=== PATIENT | female | born 1955 | race Caucasian/White ===

== ENCOUNTER 2020-03-02 10:48 | Emergency (ER) | payer MEDICAID, OTHER ==
[~2020-03-02] VITALS: Ht 167.6 cm; Wt 90.2 kg
[2020-03-02] MEDS ORDERED: LISI-464 PO (11:02)
--- NOTE | 2020-03-02 11:21 | NUR ---
Pt states epigastric abd pain x3 days, states worse today. Pt states n/v x3 days as well, denies any vomiting today. IV started, EKG completed. Pt placed on monitors. ERMD at bedside for assessment. Will follow orders.
[2020-03-02] MEDS ORDERED: MAALOX/HYOSCYAMINE/LIDOCAINE 45 ML BTL PO ONE (11:30)
[2020-03-02] MEDS ORDERED: ONDANSETRON 2MG/ML, 2ML IVPush ONE (11:30)
[2020-03-02] MEDS ORDERED: MORPHINE SULFATE 4 MG/ML, 1ML IVPush ONE (11:30)
[2020-03-02] MEDS ORDERED: SODIUM CHLORIDE 0.9% 1,000ML IVBOLUS ONE (11:30)
[2020-03-02] MEDS ORDERED: MAALOX/HYOSCYAMINE/LIDOCAINE 45 ML BTL ONE (11:31)
[2020-03-02] MEDS ORDERED: ONDANSETRON 2MG/ML, 2ML ONE (11:31)
[2020-03-02 11:40] LABS: BASOPHILS # (AUTO) 0.03 x10^3/uL (0-0.1); BASOPHILS % (AUTO) 0 % (0-1); EOSINOPHILS % (AUTO) 2 % (1-7); LYMPHOCYTES # (AUTO) 2.36 x10^3/uL (1-3.4); LYMPHOCYTES % (AUTO) 18 % (22-44); MD NO; MEAN CORPUSCULAR HEMOGLOBIN 28.6 pg (27.0-34.8); MEAN CORPUSCULAR HGB CONC 33.5 g/dL (32.4-35.8); MEAN CORPUSCULAR VOLUME 85.4 fL (80-100); MEAN PLATELET VOLUME 11.4 fL (7.4-10.4); MONOCYTES # (AUTO) 0.48 x10^3/uL (0.2-0.8); MONOCYTES % (AUTO) 4 % (2-9); NEUTROPHILS # (AUTO) 9.76 x10^3/uL (1.8-6.8); NEUTROPHILS % (AUTO) 76 % (42-75); PLATELET COUNT 219 x10^3/uL (130-400); RED BLOOD COUNT 5.54 x10^6/uL (3.82-5.3); RED CELL DISTRIBUTION WIDTH 13.1 % (9.6-15.2)
--- NOTE | 2020-03-02 11:42 | NUR ---
Pt states some pain relief after GI cocktail. Pt refuses morphine, ERMD aware.
[2020-03-02 11:43] LABS: ALANINE AMINOTRANSFERASE 28 U/L (12-78); ALBUMIN 3.9 g/dL (3.4-5.0); ANION GAP 9 mmol/L (5-15); CALCIUM 9.8 mg/dL (8.5-10.1); CHLORIDE 102 mmol/L (98-107); CREATININE 0.74 mg/dL (0.55-1.02)
[2020-03-02 11:47] LABS: ALKALINE PHOSPHATASE 104 U/L (45-117); BILIRUBIN,TOTAL 0.7 mg/dL (0.2-1.0); TOTAL PROTEIN 8.4 g/dL (6.4-8.2); TROPONIN I < 0.015 ng/mL (0.000-0.045)
--- NOTE | 2020-03-02 12:08 | NUR ---
lunch RN: Pt resting in bed
--- NOTE | 2020-03-02 12:49 | NUR ---
Pt resting in bed, awaiting CT. Pt remains on monitors, vss. Pt denies need for morphine still, states pain level comfortable for her currently, will reassess again. Cont to monitor.
--- NOTE | 2020-03-02 13:01 | NUR ---
REPORT FROM SUMA RINCON. PT TO CT AT THIS TIME.
[2020-03-02] MEDS ORDERED: OMNIPAQUE 350 MG/ML, 100ML BOTTLE ONE (13:21)
--- NOTE | 2020-03-02 13:24 | NUR ---
PT BACK FROM CT. TASK RN TO INPUT VITALS AND MONITOR PT. PT IS P/W/D, NAD, RESP WNL, ABC INTACT, RESTING IN GURNEY, CALL LIGHT IN LAP, DENIES ADDITIONAL NEEDS AT THIS TIME. WAITING FOR CT READ.
[2020-03-02 14:18] VITALS: BP 118/54
--- NOTE | 2020-03-02 14:19 | NUR ---
PT RESTING IN ROOM. VSS. NO NEEDS EXPRESSED. CALL LIGHT WITHIN REACH. CHART UP FOR RECHECK.
--- NOTE | 2020-03-02 14:25 | NUR ---
NEW ORDER FOR UA RECEIVED AT THIS TIME.
--- NOTE | 2020-03-02 14:31 | NUR ---
PT UP SELF WITH STEADY GAIT TO RR TO PROVIDE UA SAMPLE. UA COLLECTED AND SENT. PT RECONNECTED TO ALL MONITORS.
[2020-03-02 14:49] LABS: MICROSCOPIC NOT IND
[2020-03-02 14:54] LABS: CULTURE INDICATED? NO
--- NOTE | 2020-03-02 15:31 | NUR ---
DR. GREY TO BS TO UPDATE ON RESULTS AND POC. PLAN TO DC.
== END 2020-03-02 16:08 | disposition home or self-care (01) ==
LOC: ED 12:40
DX: R91.1 Solitary pulmonary nodule (principal); E87.6 Hypokalemia; R94.31 Abnormal electrocardiogram [ECG] [EKG]; R10.13 Epigastric pain
CPT/HCPCS: 36415; 74177; 80053; 81003; 83690; 84484; 85025; 93005; 96361; 96374; 99285; J2405; J7030; Q9967

== ENCOUNTER → 2020-09-17 | Outpatient (CLI) | payer MEDICAID ==
[~2020-09-17] MED LIST: ASPI-515 PO; LISI-464 PO; MULT-252 PO; calcium PO; vitamin C PO
[2020-09-17 09:32] LABS: BASOPHILS % (AUTO) 1 % (0-1); EOSINOPHILS % (AUTO) 2 % (1-7); LYMPHOCYTES % (AUTO) 26 % (22-44); MEAN CORPUSCULAR HEMOGLOBIN 27.8 pg (27.0-34.8); MEAN CORPUSCULAR HGB CONC 32.2 g/dL (32.4-35.8); MEAN PLATELET VOLUME 10.3 fL (7.4-10.4); MONOCYTES % (AUTO) 5 % (2-9); NEUTROPHILS % (AUTO) 67 % (42-75); PLATELET COUNT 256 x10^3/uL (130-400); RED BLOOD COUNT 4.91 x10^6/uL (3.82-5.3); RED CELL DISTRIBUTION WIDTH 14.6 % (9.6-15.2)
[2020-09-17 09:34] LABS: MD NO
[2020-09-17 09:42] LABS: INTERNATIONAL NORMALIZED RATIO 0.98 (0.93-1.1); PROTHROMBIN TIME 10.4 Seconds (9.6-11.5)
[2020-09-17 09:43] LABS: ALBUMIN 3.7 g/dL (3.4-5.0); ANION GAP 4 mmol/L (5-15); CALCIUM 9.8 mg/dL (8.5-10.1); CHLORIDE 107 mmol/L (98-107)
[2020-09-17 09:57] LABS: ALANINE AMINOTRANSFERASE 29 U/L (12-78); ALKALINE PHOSPHATASE 102 U/L (45-117); BILIRUBIN,TOTAL 0.3 mg/dL (0.2-1.0); TOTAL PROTEIN 7.8 g/dL (6.4-8.2)
== END | disposition home or self-care (01) ==
LOC: STAR 07:56
PROVIDERS: ATTEND Orthopaedic Surgery
DX: Z01.812 Encounter for preprocedural laboratory examination (principal); Z20.828 Contact with and (suspected) exposure to other viral communicable diseases; M17.12 Unilateral primary osteoarthritis, left knee
CPT/HCPCS: 36415; 80053; 83036; 85025; 85610; 85730; 87081; 87635; 93005

== ENCOUNTER 2020-09-22 10:11 | Observation (INO) | payer MEDICAID ==
[~2020-09-22] VITALS: Ht 165.1 cm; Wt 100.0 kg
[2020-09-22] MEDS: DOCUSATE 100 MG CAPSULE PO SCH ×2 (09:00→21:00)
[~2020-09-22 10:11] MED LIST changes: +ACETAMINOPHEN 650 MG/20.3 ML UDC PO PRN; +BISACODYL 10 MG SUPP PR PRN; +DIPHENHYDRAMINE 25 MG CAPSULE PO PRN; +EPINEPHRINE 1 MG/ML, 1ML ONE; +HYDROcodone/APAP 5/325 TABLET PO PRN; +HYDROmorphone 1 MG/ML, 1ML INJ IV PRN; +KETOROLAC 60 MG/2 ML ONE; +MAGNESIUM HYDROXIDE 8%, 30ML UDC PO PRN; +ONDANSETRON 2MG/ML, 2ML IV PRN; +ONDANSETRON 4 MG TABLET PO PRN; +ROPIvacaine/PF 0.5%, 20 ML ONE; +ROPIvacaine/PF 0.5%, 30 ML ONE; +SENNA/DOCUSATE TABLET PO PRN; +TRANEXAMIC ACID 100 MG/ML, 10ML ONE; +VANCOMYCIN 1,000 MG ONE; +ZOLPIDEM 5MG TABLET PO PRN
[2020-09-22] MEDS ORDERED: ACETAMINOPHEN 500 MG TABLET PO ONE (10:30)
[2020-09-22] MEDS ORDERED: LACTATED RINGERS 1,000 ML IV SCH (10:30)
[2020-09-22] MEDS ORDERED: GABAPENTIN 300 MG CAPSULE PO ONE (10:30)
[2020-09-22] MEDS ORDERED: CHLORHEXIDINE 15 ML UDC MM ONE (10:30)
[2020-09-22] MEDS ORDERED: ACETAMINOPHEN 500 MG TABLET ONE (10:40)
[2020-09-22] MEDS ORDERED: GABAPENTIN 300 MG CAPSULE ONE (10:41)
[2020-09-22] MEDS ORDERED: CHLORHEXIDINE 15 ML UDC ONE (10:41)
[2020-09-22] MEDS ORDERED: METH10TA6 PO ×2 (10:56)
[2020-09-22] MEDS ORDERED: MIDAZOLAM 1 MG/ML, 2ML ONE (11:06)
[2020-09-22] MEDS ORDERED: FENTANYL PF 100 MCG/2ML ONE ×3 (11:06→13:40)
[2020-09-22] MEDS ORDERED: GLYCOPYRROLATE 0.2MG/1ML, 5ML ONE (11:11)
[2020-09-22] MEDS ORDERED: DEXAMETHASONE 4 MG/ML, 1ML ONE (11:11)
[2020-09-22] MEDS ORDERED: ONDANSETRON 2MG/ML, 2ML ONE (11:11)
[2020-09-22] MEDS ORDERED: SUCCINYLCHOLINE 20 MG/ML, 10ML ONE (11:11)
[2020-09-22] MEDS ORDERED: NEOSTIGMINE 1 MG/ML, 10ML ONE (11:11)
[2020-09-22] MEDS ORDERED: CEFAZOLIN 1,000 MG ONE (11:11)
[2020-09-22] MEDS ORDERED: PROPOFOL 10 MG/ML, 20ML ONE (11:11)
[2020-09-22] MEDS ORDERED: OXYcodone 5 MG/5 ML ORAL.SOL UDC PO PRN (11:30)
[2020-09-22] MEDS ORDERED: HYDROmorphone 1 MG/ML, 1ML INJ IVPush PRN (11:30)
[2020-09-22] MEDS ORDERED: PROMETHAZINE 25 MG/ML, 1ML IVPush PRN (11:30)
[2020-09-22] MEDS ORDERED: EPHEDRINE 50 MG/ML, 1ML ONE (12:15)
[2020-09-22] MEDS: FENTANYL PF 100 MCG/2ML IV PRN ×2 (13:42→13:48)
[2020-09-22] MEDS ORDERED: OXYcodone 5 MG/5 ML ORAL.SOL UDC ONE (13:49)
[2020-09-22] MEDS ORDERED: SODIUM CHLORIDE 0.9% 50 ML ONE (14:30)
[2020-09-22] MEDS: NS + 20MEQ KCL 1,000 ML IV SCH (15:42)
[2020-09-22] MEDS ORDERED: FLU VACC QS2020-21(6MOS UP)/PF 60MCG/0.5 ML SYR IM ONE (16:00)
[2020-09-22] MEDS: ASPIRIN 81 MG TABLET EC PO SCH (17:05)
[2020-09-22 18:39] VITALS: BP 100/65
[2020-09-22] MEDS: CEFAZOLIN PMX 2GM/50ML 50 ML IVPB SCH (21:01)
[2020-09-22] MEDS: OXYcodone IR 5MG TABLET PO PRN (23:58)
[2020-09-23 00:12] VITALS: BP 111/67
[2020-09-23 03:43] VITALS: BP 106/66
[2020-09-23] MEDS: NS + 20MEQ KCL 1,000 ML IV SCH (04:30)
[2020-09-23] MEDS: CEFAZOLIN PMX 2GM/50ML 50 ML IVPB SCH (04:32)
[2020-09-23] MEDS: ASPIRIN 81 MG TABLET EC PO SCH (05:46)
[2020-09-23] MEDS: OXYcodone IR 5MG TABLET PO PRN (05:46)
[2020-09-23] MEDS ORDERED: DEXAMETHASONE 4 MG/ML, 1ML IVPush SCH (06:00)
[2020-09-23 07:10] VITALS: BP 130/77
[2020-09-23] MEDS: DOCUSATE 100 MG CAPSULE PO SCH (08:17)
[2020-09-23] MEDS ORDERED: LISINOPRIL 20 MG TABLET PO SCH (09:00)
[2020-09-23] MEDS ORDERED: METHIMAZOLE 5 MG TAB PO SCH (09:00)
[2020-09-23] MEDS ORDERED: HYDROCHLOROTHIAZIDE 25 MG TABLET PO SCH (09:00)
[2020-09-23 10:46] VITALS: BP 128/71
[2020-09-24] MEDS ORDERED: METHIMAZOLE 5 MG TAB PO SCH (08:30)
== END 2020-09-23 11:22 | disposition home or self-care (01) ==
LOC: OUT 10:11 → 4NE 14:51 → OUT 20:25 → 4NE 23:38 → DCLOUNGE 09-23 11:11
PROVIDERS: ADMIT Orthopaedic Surgery; ATTEND Orthopaedic Surgery
DX: M17.12 Unilateral primary osteoarthritis, left knee (principal); I10 Essential (primary) hypertension; E05.90 Thyrotoxicosis, unspecified without thyrotoxic crisis or storm; Z96.652 Presence of left artificial knee joint; Z87.891 Personal history of nicotine dependence; Z79.899 Other long term (current) drug therapy
CPT/HCPCS: 27447; 36415; 85014; 85018; 96361; 96365; 96366; 96375; 97110; 97161; 97165; C1713; C1776; G0378; J0171; J0330; J0690; J1100; J1885; J2250; J2405; J2704; J2710; J2795; J3010; J3370; J3480; J7120